=== PATIENT | male | born 2000 | race Caucasian/White ===

== ENCOUNTER 2024-07-06 11:09 | Emergency (ER) | payer BC, SELFPAY ==
[2024-07-06 11:10] VITALS: BP 141/88; PULSE 67; RESP 16; TEMP 36.6; O2SAT 96
--- NOTE | 2024-07-06 11:15 | ED.GENADULT ---
HPI - General Adult General Stated complaint: Allergic Reaction Source: patient Mode of arrival: ambulatory Limitations: no limitations History of Present Illness HPI narrative: 24-year-old male with history of cashew allergy presented for complaint of an allergic reaction likely to nuts. He states after eating brittle with nuts he developed itchy throat. Pt then took Benadryl 100mg, and then vomited. Significant other states he appeared flushed with possible hives. She gave additional benadryl. Pt then reported chest pain and wheezing. Denies throat, tongue, or lip swelling. States he gets allergy shots at [facility] [place]. They do not have an Epi pen. Review of Systems Review of Systems: ROS per HPI All systems reviewed & are unremarkable except as noted in HPI and below PMFSH Comments At time of signature, I have reviewed and agree with nursing past medical, surgical, social and family history unless otherwise noted. Please see nursing chart for further information. There is no relevant family history pertinent to the presenting complaint Exam Narrative: GENERAL: mildly ill-appearing, and in no acute distress. EYES: EOMI. No redness or drainage. bilateral conjunctival injection, right greater than left ENT: Mucous membranes pink and moist. No rhinorrhea. Throat normal; airway patent. Uvula midline. NECK: Normal AROM. CHEST: No respiratory distress. Speaks full sentences. Intermittent inspiratory wheeze to left anterior lung. HEART: Regular rate and rhythm. No murmur appreciated. Normal peripheral pulses. SKIN: Warm, dry, no rash noted. Capillary refill normal. Normal skin turgor. NEURO: No focal deficits. Alert and oriented x3. Gait steady. PSYCH: Normal affect. Course Course Emergency Course: Patient is aware of diagnosis, understands and agrees to treatment plan. Anticipatory guidance given. Patient agrees to follow-up as directed and is aware of reasons to seek care at the emergency department. Portions of this record may have been created with voice recognition software Level of Care: Express Care Visit Transfer Transfered to: [facility] Transportation: Other ( private vehicle) Transfer rationale: Pt is agreeable to transfer. Requests transfer to [facility] via private vehicle; refuses ambulance. Risks of transportation reviewed with pt including injury, worsening of condition and . v/u. will be driving pt; Report called to hospital, spoke with Marilee ZIMMERMAN, Dr Pang, accepting physician. Pt is in stable condition at time of transfer. Advised to remain NPO and go directly to the hospital. Medical Decision Making MDM Narrative Medical decision making narrative: discussed physical exam findings consistent with allergic reaction. Solu-Medrol 125 mg IM given with Pepcid 40 mg p.o.. Patient tolerated well. Endorses decreased runny nose and itching eyes. Also reports breathing is better without wheezing. Lungs clear on auscultation on reassessment. Advised ER transfer for further monitoring. pt refuses ambulance transfer, will drive. The patient is AA&Ox3. The patient has demonstrated concrete thinking/reasoning, has maintained an health sanitarian/reasonable conversation, appears to have intact insight/judgment/reason and therefore has capacity to make decisions. Given the patients presentation, we communicated our concern for transfer to ER via EMS in laymans terms. The patient verbalized an understanding. We have discussed the range of possible dx, potential testing & treatment options as well as immediate treatment and airway management in EMS. Our discussions included the potential outcomes, including worsening of their condition, becoming permanently disabled/in pain/critically ill, or . Despite these efforts, we were unable to convince the pt to utilize ambulance. A staff member witnessed the patient consenting to AMA. Differential Diagnosis Differential Diagnosis: Allergic reaction, angioedema, anaphylaxis, anxiety, asthma exacerbation Vital Signs Vital Signs: reviewed Discharge Plan Discharge Clinical Impression: Allergic reaction Patient Disposition: Acute Care Hospital Condition: Stable Patient Language: Togolese Follow-up/Referrals: UNKNOWN,DOCTOR [Primary Care Provider] - Time of Disposition: 11:30
[2024-07-06 11:35] VITALS: BP 135/86; PULSE 63; RESP 16; O2SAT 98
[2024-07-06] MEDS: FAMOTIDINE 20 MG TABLET 40 MG PO (11:59)
[2024-07-06] MEDS: methylPREDNISolone SOD SUCC 125 MG VIAL IM (12:00)
== END 2024-07-06 11:35 | disposition short-term general hospital (02) ==
PROVIDERS: Emergency Provider Nurse Practitioner Family
DX: T78.40XA Allergy, unspecified, initial encounter (principal)
CPT/HCPCS: 96372; 99213; A9270; G0463; J2919